=== PATIENT | male | born 1985 | race African-American/Black ===

== ENCOUNTER 2020-03-26 20:47 | Emergency (ER) | payer OTHER, BC ==
[~2020-03-26] VITALS: Ht 177.8 cm; Wt 104.5 kg
[2020-03-26] MEDS ORDERED: PERTUSS(ACELL),DIPH,TET VAC/PF 0.5 ML VIAL IM ONE (21:30)
[2020-03-26] MEDS ORDERED: SODIUM CHLORIDE 0.9% 250 ML IRRIG SOLUTION BOTTLE IRRIG ONE (21:30)
[2020-03-26] MEDS ORDERED: HYDROCODONE/ACETAMINOPHEN 5-325 MG TABLET PO ONE (21:30)
[2020-03-26 22:03] VITALS: BP 139/82
== END 2020-03-26 22:03 | disposition home or self-care (01) ==
LOC: EMS 20:47
DX: S67.194A Crushing injury of right ring finger, initial encounter (principal); W23.0XXA Caught, crushed, jammed, or pinched between moving objects, initial encounter; Y93.89 Activity, other specified; Y92.89 Other specified places as the place of occurrence of the external cause; Y99.0 Civilian activity done for income or pay
CPT/HCPCS: 90471; 90715